=== PATIENT | female | born 1990 | race Caucasian/White ===

== ENCOUNTER 2023-06-13 12:29 | Emergency (ER) | payer BC, OTHER, SELFPAY ==
[2023-06-13 12:33] VITALS: BP 137/85; PULSE 83; RESP 18; TEMP 36.8; O2SAT 98; BMI 42.9
--- NOTE | 2023-06-13 12:51 | DI.US.S_ITS ---
PROCEDURE: US OB <= 14 WEEKS FETUS INDICATIONS: EVALUATE FOR ECTOPIC OUTSIDE/PRIOR DATING DATA: Last menstrual period (LMP): May 25, 2023 TECHNIQUE: Real-time scanning was performed of the maternal pelvic organs, with image documentation. Endovaginal scanning was also performed to better visualize the fetus and maternal ovaries. COMPARISON: None. FINDINGS: No evidence for intrauterine gestation identified at this time. No intrauterine gestational sac or fluid collection. No evidence for decidual reaction. Anteverted uterus measures 8.8 x 4.2 x 5.1 cm. Combined endometrial thickness measures 5 mm. Uterine echotexture is homogeneous. Right ovary measures 2.2 x 1.5 x 2.5 cm with ovarian volume of 4.5 mL. Left ovary measures 2.0 x 2.0 x 2.1 cm with ovarian volume of 4.0 mL. Left ovary is partially obscured by overlying bowel gas. There appears to be a complex cystic structure seen in the left ovary measuring 1.3 x 1.3 x 1.3 cm. There is no associated vascularity. IMPRESSION: No sonographic evidence for intrauterine gestation at this time. There is a nonvascular complex cystic lesion in the left ovary measuring 1.3 cm in size. If there is a positive test, findings may represent an early normal intrauterine gestation although ectopic not excluded. Recommend continued clinical and laboratory surveillance with serial quantitative HCG measurements to document expected rate of change. Short interval follow-up imaging as indicated. We strive to produce accurate, complete, and clear reports of imaging services. To assist us in improving patient care, this report was composed using standard report templates and voice recognition software. Therefore, it may contain abnormal punctuation, insertions and/or omissions. Occasional wrong-word or sound-alike substitutions may occur. Though we review the report and make efforts to correct it, we do recommend that the report be read carefully in proper context to recognize any text inaccuracies. Dictated by: Mohit Abreu M.D. on 06/13/2023 at 14:51 Approved by: Mohit Abreu M.D. on 06/13/2023 at 14:57
[2023-06-13 14:48] LABS: Add Manual Diff / Slide Review NO; Basophils Absolute Auto 0 /uL (0-100); Basophils Percent Auto 0.5 % (0-2); Eosinophils Absolute Auto 100 /uL (0-450); Eosinophils Percent Auto 1.6 % (2-4); Hematocrit 38.6 % (36-46); Hemoglobin 13.5 g/dL (12.0-16.0); Lymphocytes Absolute Auto 1900 /uL (1100-4500); Lymphocytes Percent Auto 29.8 % (25-40); Mean Corpuscular HGB Conc 34.9 % (30-36); Mean Corpuscular Hemoglobin 31.9 PG (26-34); Mean Corpuscular Volume 91.3 fL (80-100); Monocytes Absolute Auto 600 /uL (0-900); Monocytes Percent Auto 8.6 % (3-14); Neutrophils Absolute Auto 3800 /uL (1500-7000); Neutrophils Percent Auto 59.5 % (50-75); Platelet Count 203 X10^3/uL (150-400); Red Blood Cell Count 4.22 X10^6/uL (4.0-5.2); Red Cell Distribution Width 14.1 % (11.6-14.8); White Blood Cell Count 6.4 X10^3/uL (4.5-11.0)
[2023-06-13 14:59] LABS: BUN Creatinine Ratio 14.3 (6-22); Blood Urea Nitrogen 9 mg/dL (7-17); Carbon Dioxide 25 mmol/L (22-32); Chloride 104 mmol/L (98-107); Estimated Glomerular Filt Rate > 60 mL/min (>60); Glucose 95 mg/dL (70-100); HEMOLYSIS 24 (0-50); Sodium 136 mmol/L (137-145)
[2023-06-13 15:15] LABS: HCG Quantitative /Beta subunit 627.8 mIU/mL
--- NOTE | 2023-06-13 16:18 | ED.RECABL ---
HPI - Recheck/Abnormal Lab/Rx General Chief Complaint: Recheck/Abnormal Lab/Rx Stated Complaint: PCP ref atopic preg/ miscarriage Time Seen by Provider: 06/13/23 12:36 Source: patient Mode of arrival: Ambulatory History of Present Illness HPI narrative: Patient is a 32-year-old female. . States her last encounter for sexual intercourse was little over 1 month ago. She stated that several weeks later she had an episode of vaginal bleeding. This continued for a couple days. She then took a test within the past 2 weeks. She is been followed at an outside facility. She stated that the vaginal bleeding has stopped. Her 1st visit of the outside clinic was on June 06. She would a positive test. Negative ultrasound. Beta hCG was 370. Follow-up 48 hours later had a beta-hCG of 391. 48 hours later beta hCG was 551. She was scheduled to have another ultrasound and hCG today however she was advised by the clinic to come to the emergency department. She is having lower abdominal tenderness. No fevers. No vomiting. Related Data Previous Rx's Medication Instructions Recorded fluticasone propionate 50 1 spray intranasal QDAY ##16 07/04/16 mcg/actuation nasal spray,suspension albuterol sulfate 90 mcg/actuation 1 - 2 puff INH Q4HP PRN #1 ea 07/05/16 aerosol inhaler (Ventolin HFA) Allergies Allergy/AdvReac Type Severity Reaction Status Date / Time Sulfa (Sulfonamide Allergy Unknown Unverified 11/06/17 11:50 Antibiotics) Review of Systems Constitutional Constitutional: Reports system reviewed and no additional complaints, except as documented Gastrointestinal Gastrointestinal: Reports system reviewed and no additional complaints, except as documented Genitourinary Genitourinary: Reports system reviewed and no additional complaints, except as documented Integumentary/Breasts Skin/Breast: Reports system reviewed and no additional complaints, except as documented Patient History Family History (Updated 07/06/16 @ 00:00 by LUCIAN Huber) Mother Age: 52 FAP (familial adenomatous polyposis) Exam Initial Vital Signs Initial Vital Signs: Vital Signs Temperature 98.3 F 06/13/23 12:33 Pulse Rate 83 06/13/23 12:33 Respiratory Rate 18 06/13/23 12:33 Blood Pressure 137/85 06/13/23 12:33 Pulse Oximetry 98 06/13/23 12:33 Oxygen Delivery Method Room Air 06/13/23 12:33 HENMT Head: normal to inspection and normocephalic Resp Effort & Inspection: normal respiratory effort GI Inspection: non-distended Skin General: no rashes or lesions noted Neuro General: patient alert, patient awake and moves all extremities Extrem General: normal to inspection Course Orders Ordered: ED Orders 06/13/23 12:51 US OB <= 14 weeks fetus Stat 06/13/23 14:35 ABO RH Type Stat Basic Metabolic Panel Stat Complete Blood Count AUTO DIFF Stat HCG Quantitative /Beta subunit Stat Vital Signs Vital signs: Vital Signs - 8 hr 06/13/23 12:33 06/13/23 16:24 Temperature 98.3 F Pulse Rate 83 75 Respiratory Rate 18 16 Blood Pressure 137/85 119/74 Pulse Oximetry 98 100 Oxygen Delivery Method Room Air Room Air MDM - Recheck/Abnormal Lab/Rx Lab Data Attestation: I reviewed the patient's lab results. 06/13/23 14:35 06/13/23 14:35 Labs: Lab Results 06/13/23 Range/Units 14:35 WBC 6.4 (4.5-11.0) X10^3/uL RBC 4.22 (4.0-5.2) X10^6/uL Hgb 13.5 (12.0-16.0) g/dL Hct 38.6 (36-46) % MCV 91.3 (80-100) fL MCH 31.9 (26-34) PG MCHC 34.9 (30-36) % RDW 14.1 (11.6-14.8) % Plt Count 203 (150-400) X10^3/uL Neut % (Auto) 59.5 (50-75) % Lymph % (Auto) 29.8 (25-40) % [place] % (Auto) 8.6 (3-14) % Eos % (Auto) 1.6 L (2-4) % Baso % (Auto) 0.5 (0-2) % Neut # (Auto) 3800 (9716-6624) /uL Lymph # (Auto) 1900 (3750-7071) /uL [place] # (Auto) 600 (0-900) /uL Eos # (Auto) 100 (0-450) /uL Baso # (Auto) 0 (0-100) /uL Sodium 136 L (137-145) mmol/L Potassium 4.0 (3.4-5.1) mmol/L Chloride 104 (98-107) mmol/L Carbon Dioxide 25 (22-32) mmol/L BUN 9 (7-17) mg/dL Creatinine 0.63 (0.52-1.04) mg/dL Estimated GFR > 60 (>60) mL/min BUN/Creatinine Ratio 14.3 (6-22) Glucose 95 (70-100) mg/dL Calcium 9.0 (8.4-10.2) mg/dL HCG, Quant 627.8 mIU/mL Blood Type O Positive Imaging Data US - OB: Radiologist's Impression: PROCEDURE: US OB <= 14 WEEKS FETUS INDICATIONS: EVALUATE FOR ECTOPIC OUTSIDE/PRIOR DATING DATA: Last menstrual period (LMP): May 25, 2023 TECHNIQUE: Real-time scanning was performed of the maternal pelvic organs, with image documentation. Endovaginal scanning was also performed to better visualize the fetus and maternal ovaries. COMPARISON: None. FINDINGS: No evidence for intrauterine gestation identified at this time. No intrauterine gestational sac or fluid collection. No evidence for decidual reaction. Anteverted uterus measures 8.8 x 4.2 x 5.1 cm. Combined endometrial thickness measures 5 mm. Uterine echotexture is homogeneous. Right ovary measures 2.2 x 1.5 x 2.5 cm with ovarian volume of 4.5 mL. Left ovary measures 2.0 x 2.0 x 2.1 cm with ovarian volume of 4.0 mL. Left ovary is partially obscured by overlying bowel gas. There appears to be a complex cystic structure seen in the left ovary measuring 1.3 x 1.3 x 1.3 cm. There is no associated vascularity. IMPRESSION: No sonographic evidence for intrauterine gestation at this time. There is a nonvascular complex cystic lesion in the left ovary measuring 1.3 cm in size. If there is a positive test, findings may represent an early normal intrauterine gestation although ectopic not excluded. Recommend continued clinical and laboratory surveillance with serial quantitative HCG measurements to document expected rate of change. Short interval follow-up imaging as indicated. MDM Narrative Medical decision making narrative: Beta hCG today is 627 which is higher than 48 hours ago but certainly not double. She is Rh positive. Ultrasound shows no IUP there were appears to be a small cyst in the left ovary. I did discuss the case with Dr. ross who stated that there was no emergent intervention needed today. She stated that the patient can follow-up in her clinic and they would continue to follow her hormone levels. I did discuss this with the patient. She was very upset that nothing would be done today. She states that the is not normal because her last intercourse was over a month ago and her beta-hCG levels are not rising appropriately. Her exam today is not consistent with an ectopic . She does not have an acute abdomen. 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 She was given strict return precautions. Discharge Plan Departure Patient Disposition: Home Clinical Impression: Threatened miscarriage Activity Restrictions/Additional Instructions: You can continue to take Tylenol for any discomfort. I do recommend that tomorrow you contact the office of Dr. ross at the number provided below. Your information was also sent to their clinic however I would not necessarily wait for them to call you. They can see you in the office for follow-up. If your symptoms worsen or you develop fevers or increasing pain please return to the emergency department for further evaluation Prescriptions: No Action fluticasone propionate 16 GM spray,suspension 1 spray Intranasal QDAY Qty: 16 3RF albuterol sulfate [Ventolin HFA] 90 MCG/PUFF HFA aerosol inhaler 1 - 2 puff INH Q4HP PRNQty: 1 6RF Referrals: *[facility]* [Primary Care Provider] - Ana Ross MD [Physician] - Stand Alone Forms: Patient Portal/API, Work Release Note
[2023-06-13 16:24] VITALS: BP 119/74; PULSE 75; RESP 16; O2SAT 100
[2023-06-13 17:58] VITALS: BP 126/76; PULSE 88; RESP 16; TEMP 36.7; O2SAT 100
--- NOTE | 2023-06-13 18:00 | PC.NURSE ---
Patient verbally abusive towards staff throughout visit. This RN went into discharge patient. Patient upset that she is being discharged for followup and that she is not getting her complaint fixed or taken seriously. This RN tried to reassure the patient by talking to her about Dr. Ross being able to see her tomorrow and followup. Patient upset with this and berated this RN for being a man and not understanding. This RN apologized asked if I could do anything to help her. I asked if I could get Dr. Sharp for her. She said no he won't understand I'll just ask her. Patient was also upset with discharging with Tylenol as prescribed pain relief. This RN apologized again and she began raising her voice saying I'm not and this is so stupid. This RN continued to try to assist patient and take last vitals. This RN apologized about patient pain and said I'm sorry I don't know what your pain feels like I'd be happy to talk to Dr. Sharp again before you go. Patient stated That's the problem with you faggots and dykes. I chose to not respond and escort patient out of room and she exited department. This RN informed charge nurse of situation.
== END 2023-06-13 17:30 | disposition home or self-care (01) ==
PROVIDERS: Emergency Provider Emergency Medicine
DX: O20.0 Threatened abortion (principal); Z3A.00 Weeks of gestation of pregnancy not specified
CPT/HCPCS: 76801; 76817; 80048; 84702; 85025; 86900; 86901; 93975; 99281; 99283

== ENCOUNTER → 2023-06-19 09:12 | Outpatient (CLI) | payer BC, OTHER, SELFPAY ==
[2023-06-19 10:49] LABS: HCG Quantitative /Beta subunit 573.3 mIU/mL
== END ==
PROVIDERS: Referring Provider Obstetrics & Gynecology; Visit Provider Obstetrics & Gynecology
DX: O20.0 Threatened abortion (principal)
CPT/HCPCS: 36415; 84702; 86850; 86900; 86901

== ENCOUNTER → 2023-08-09 09:50 | Outpatient (CLI) | payer BC, OTHER, MEDICAID, SELFPAY ==
[2023-08-09 11:42] LABS: Free T4, Direct Thyroxine 0.99 ng/dL (0.78-2.19)
[2023-08-09 11:55] LABS: Thyroid Stimulating Hormone 1.03 uIU/mL (0.47-4.68)
[2023-08-14 12:36] LABS: Dilute Russell Viper Venom 41.1 sec (0.0-47.0); Lupus Reflex Interpretation Comment: (.); PTT-LA 36.8 sec (0.0-43.5)
[2023-08-26 09:36] LABS: Cardiolipin IgA Negative (.); Recommendations Comment: (.)
== END ==
PROVIDERS: PCP Family Medicine; Referring Provider Specialist; Visit Provider Specialist
DX: N96 Recurrent pregnancy loss (principal)
CPT/HCPCS: 36415; 81241; 83520; 84439; 84443; 85598; 85613; 86147; 86148